=== PATIENT | male | born 2000 ===

== ENCOUNTER 2021-12-18 17:03 | Emergency (ER) | payer SELFPAY ==
[2021-12-18 18:09] LABS: Absolute Lymphocytes (CBC) 1.1 K/uL (0.7-4.9); Hematocrit 42.5 % (39.6-49.0); Lymphocytes % 12.9 % (15.3-44.8); MCV 87.2 fL (80-100); MPV 8.7 fL (7.6-11.3); RBC Red Blood Cell Count 4.87 M/uL (4.33-5.43)
[2021-12-18] MEDS ORDERED: NA CHLORIDE 0.9% 1,000 ML ONE ×2 (18:09→21:08)
[2021-12-18 18:17] LABS: Urine Blood Negative (Negative); Urine Glucose Negative (Negative); Urine Protein Negative (Negative); Urine Specific Gravity 1.025 (1.005-1.030); Urine pH 5.5 (5.0-7.0)
[2021-12-18 18:22] LABS: Protime INR 1.07
[2021-12-18 18:26] LABS: ALT/SGPT 33 U/L (12-78); AST/SGOT 17 U/L (15-37); Albumin 3.8 g/dL (3.4-5.0); Alkaline Phosphatase 115 U/L (45-117); BUN Blood Urea Nitrogen 16 mg/dL (7-18); Bicarbonate 26 mmol/L (21-32); Bilirubin Direct 0.1 mg/dL (0-0.2); Bilirubin Total 0.5 mg/dL (0.2-1.0); Glomerular Filtration Rate 75 ml/min (=/>90); Glucose Level 106 mg/dL (74-106); Magnesium 2.2 mg/dL (1.8-2.4); Potassium 3.8 mmol/L (3.5-5.1); Protein, Total 6.9 g/dL (6.4-8.2); Sodium Level 139 mmol/L (136-145)
[2021-12-18 18:34] LABS: Thyroid Stimulating Hormone 0.686 uIU/mL (0.360-3.740)
[2021-12-18 18:35] LABS: Barbiturates NEGATIVE (NEGATIVE); Benzodiazepines NEGATIVE (NEGATIVE); Cocaine NEGATIVE (NEGATIVE); METHAMPHETAM NEGATIVE (NEGATIVE); Methadone NEGATIVE (NEGATIVE); Opiates NEGATIVE (NEGATIVE); Phencyclidine NEGATIVE (NEGATIVE); THC Cannibis NEGATIVE (NEGATIVE)
[2021-12-18 18:38] LABS: NT PRO-BNP < 5 pg/mL (<125)
--- NOTE | 2021-12-18 19:09 | RAD REPORT ---
EXAM DESCRIPTION: RAD - Chest Single View - 12/18/2021 5:55 pm CLINICAL HISTORY: cptachycardiac TECHNIQUE: AP portable chest image was obtained 12/18/2021 5:55 pm . FINDINGS: Lungs are clear. Heart and vasculature are normal. No measurable pleural effusion and no p neumothorax. No acute bony abnormality seen. No acute aortic findings suspected. IMPRESSION: No acute cardiopulmonary process.
--- NOTE | 2021-12-18 21:47 | ER ---
Nurse's Notes [facility] Name: Srini Palomino Age: 21 yrs Sex: Male : 2000 Arrival Date: 12/18/2021 Time: 17:05 Bed 5 Private MD: Diagnosis: Dehydration Presentation: 12/18 17:12 Chief complaint: EMS states[place] beach , was tachycardic at 180 bpm , iw gave IVF , now down to 125 bpm, pt states he worked all night and went straight to the beach and did not eat much, had two beers at the beach. Coronavirus screen: At this time, the client does not indicate any symptoms associated with coronavirus-19. Ebola Screen: Patient negative for fever greater than or equal to 101.5 degrees Fahrenheit, and additional compatible Ebola Virus Disease symptoms Patient denies exposure to infectious person. Patient denies travel to an Ebola-affected area in the 21 days before illness onset. No symptoms or risks identified at this time. Risk Assessment: Do you want to hurt yourself or someone else? Patient reports no desire to harm self or others. Onset of symptoms was December 18, 2021. 17:12 Method Of Arrival: EMS: [facility] iw 17:12 Acuity: RACHAEL 3 iw 17:15 Care prior to arrival: Medication(s) given: LR 650 mL IV initiated. 18 GA, in the left iw antecubital area, Glucose check: 119. 18:09 Initial Sepsis Screen: Does the patient meet any 2 criteria? HR > 90 bpm. Does the vg1 patient have a suspected source of infection? No. Patient's initial sepsis screen is negative. Historical: - Allergies: 17:15 No Known Allergies; iw - Home Meds: 17:15 None [Active]; iw - PMHx: 17:15 None; iw - PSHx: 18:10 Appendectomy; vg1 - Immunization history:: Client reports receiving the 2nd dose of the Covid vaccine. - Social history:: Smoking status: Patient denies any tobacco usage or history of. Screenin:55 Abuse screen: Denies threats or abuse. Nutritional screening: No deficits noted. vg1 Tuberculosis screening: No symptoms or risk factors identified. Fall Risk No fall in past 12 months (0 pts). No secondary diagnosis (0 pts). IV access (20 points). Ambulatory Aid- None/Bed Rest/Nurse Assist (0 pts). Gait- Normal/Bed Rest/Wheelchair (0 pts) Mental Status- Total Tidwell Fall Scale indicates No Risk (0-24 pts). Assessment: 17:52 General: Appears in no apparent distress. comfortable, Behavior is calm, cooperative. vg1 Pain: Denies pain. Neuro: Level of Consciousness is awake, alert, obeys commands, Oriented to person, place, time, situation. Cardiovascular: Patient's skin is warm and dry. Cardiovascular: Denies chest pain, shortness of breath. Respiratory: Airway is patent Respiratory effort is even, unlabored. GI: No signs and/or symptoms were reported involving the gastrointestinal system. : No signs and/or symptoms were reported regarding the genitourinary system. EENT: No signs and/or symptoms were reported regarding the EENT system. Derm: Skin is intact, is healthy with good turgor. Musculoskeletal: Circulation, motion, and sensation intact. 17:52 Reassessment: Pt girlfriend stated, "he was sitting down and passed out and fell onto vg1 the sand but he did not hit his head" pt stated before falling "I could feel my heart beating fast and I became dizzy and a little nauseous". 20:13 Reassessment: Patient appears in no apparent distress at this time. Patient is alert, as6 oriented x 3, equal unlabored respirations, skin warm/dry/pink. 21:42 Reassessment: Patient appears in no apparent distress at this time. as6 Vital Signs: 17:56 BP 136 / 81; Pulse 115; Resp 16; Pulse Ox 100% on R/A; vg1 18:08 Weight 84.37 kg; Height 5 ft. 11 in. (180.34 cm); Pain 0/10; vg1 20:13 BP 117 / 62; Pulse 100; Resp 18 S; Pulse Ox 100% on R/A; as6 21:42 BP 126 / 70; Pulse 84; Resp 17 S; Pulse Ox 99% on R/A; as6 18:08 Body Mass Index 25.94 (84.37 kg, 180.34 cm) vg1 ED Course: 17:05 Patient arrived in ED. iw 17:14 Diego Giles NP is PHCP. pm1 17:14 London Kaufman MD is Attending Physician. pm1 17:14 Triage completed. iw 17:15 Arm band placed on. iw 17:40 Brenda Lebron, RN is Primary Nurse. vg1 17:55 Patient has correct armband on for positive identification. Placed in gown. Bed in low vg1 position. Call light in reach. Side rails up X2. Adult w/ patient. 17:55 No provider procedures requiring assistance completed. Maintain EMS IV. Dressing vg1 intact. Good blood return noted. Site clean \\T\\ dry. Gauge \\T\\ site: 18 L AC. 17:55 Initial lab(s) drawn, by me, sent to lab. vg1 17:57 Chest Single View In Process Unspecified. EDMS 20:13 PO fluids given. as6 22:03 IV discontinued, intact, bleeding controlled, No redness/swelling at site. Pressure as6 dressing applied. Administered Medications: 18:05 Drug: NS 0.9% 1000 ml Route: IV; Rate: 1000 ml; Site: left antecubital; vg1 22:03 Follow up: Response: No adverse reaction; IV Status: Completed infusion; IV Intake: as6 1000ml 21:09 Drug: NS 0.9% 1000 ml Route: IV; Rate: 1 bolus; Site: left antecubital; as6 22:03 Follow up: Response: No adverse reaction; IV Status: Completed infusion; IV Intake: as6 1000ml Medication: 22:03 VIS not applicable for this client. as6 Intake: 22:03 IV: 1000ml; Total: 1000ml. as6 22:03 IV: 1000ml; Total: 2000ml. as6 Outcome: 21:46 Discharge ordered by . pm1 22:03 Discharged to home ambulatory. as6 22:03 Condition: stable 22:03 Discharge instructions given to patient, Instructed on discharge instructions, follow up and referral plans. Demonstrated understanding of instructions, follow-up care. 22:04 Patient left the ED. as6 Signatures: Dispatcher [employer] Ying Leora, ROMEL URENA iw Diego Giles, DIRECTOR OF FAMILY SERVICE CENTER DIRECTOR OF FAMILY SERVICE CENTER pm1 Brenda Lebron, ROMEL URENA vg1 Babak Evans RN RN as6
--- NOTE | 2021-12-18 21:47 | EDPHYS ---
Physician Documentation [facility] Name: Srini Palomino Age: 21 yrs Sex: Male : 2000 Arrival Date: 12/18/2021 Time: 17:05 Bed 5 Private MD: ED Physician London Kaufman HPI: 12/18 17:26 This 21 yrs old Male presents to ER via EMS with complaints of Near Syncope. pm1 17:26 The patient has experienced syncope, collapsed. Onset: The symptoms/episode pm1 began/occurred just prior to arrival. Duration: This was a single episode. Context: the episode(s) was witnessed, by a significant other, occurred The beach, occurred while the patient was sitting, Just prior to the episode the patient experienced dizziness. Associated injury: The patient did not suffer any apparent associated injury. Associated signs and symptoms: Pertinent positives: Palpitations, negative for chest pain. Current symptoms: Palpitations. The patient has not experienced similar symptoms in the past. The patient has not recently seen a physician. Patient reports that he uses energy drinks every day for work. Today the patient worked and went directly to the beach after work and had 2 beers. Started feeling a little dizzy walked into the tent at the beach sat down and had a syncopal episode. Negative for injury. Presenting here in the ER with reports of palpitations. Historical: - Allergies: 17:15 No Known Allergies; iw - Home Meds: 17:15 None [Active]; iw - PMHx: 17:15 None; iw - PSHx: 18:10 Appendectomy; vg1 - Immunization history:: Client reports receiving the 2nd dose of the Covid vaccine. - Social history:: Smoking status: Patient denies any tobacco usage or history of. ROS: 17:26 Constitutional: Negative for fever, chills, and weight loss. pm1 17:26 Respiratory: Negative for shortness of breath, cough, wheezing, and pleuritic chest pain, Abdomen/GI: Negative for abdominal pain, nausea, vomiting, diarrhea, and constipation, Back: Negative for injury and pain, MS/Extremity: Negative for injury and deformity, Skin: Negative for injury, rash, and discoloration. 17:26 Cardiovascular: Positive for palpitations, Negative for chest pain. 17:26 Neuro: Positive for dizziness, syncope, Negative for headache. 17:26 All other systems are negative. Exam: 17:26 Abdomen/GI: Exam negative for acute changes, Palpation: abdomen is soft and non-tender, pm1 in all quadrants. 17:26 Constitutional: This is a well developed, well nourished patient who is awake, alert, and in no acute distress. Head/Face: Normocephalic, atraumatic. 17:26 Back: No spinal tenderness. No costovertebral tenderness. Full range of motion. Skin: Warm, dry with normal turgor. Normal color with no rashes, no lesions, and no evidence of cellulitis. 17:26 MS/ Extremity: Pulses equal, no cyanosis. Neurovascular intact. Full, normal range of motion. 17:26 Eyes: Exam is negative for acute changes, Periorbital structures: appear normal, Pupils: no acute changes, Extraocular movements: no acute changes. 17:26 ENT: Exam is negative for acute changes, Mouth: no acute changes, Lips: normal, moist, Oral mucosa: normal, pink and intact, moist. 17:26 Cardiovascular: Exam negative for acute changes, Rate: tachycardic, Rhythm: regular, Pulses: no pulse deficits are appreciated, Heart sounds: normal, normal S1and S2, Edema: is not appreciated. 17:26 Respiratory: Exam negative for acute changes, respiratory distress, shortness of breath, Breath sounds: are clear throughout. 17:26 Abdomen/GI: Exam negative for acute changes, Inspection: abdomen appears normal, Palpation: abdomen is soft and non-tender, in all quadrants. 17:26 Neuro: Exam negative for acute changes, Orientation: is normal, Mentation: is normal, Motor: is normal, moves all fours. Vital Signs: 17:56 BP 136 / 81; Pulse 115; Resp 16; Pulse Ox 100% on R/A; vg1 18:08 Weight 84.37 kg; Height 5 ft. 11 in. (180.34 cm); Pain 0/10; vg1 20:13 BP 117 / 62; Pulse 100; Resp 18 S; Pulse Ox 100% on R/A; as6 21:42 BP 126 / 70; Pulse 84; Resp 17 S; Pulse Ox 99% on R/A; as6 18:08 Body Mass Index 25.94 (84.37 kg, 180.34 augustine) vg1 MDM: 17:15 Patient medically screened. pm1 21:45 Data reviewed: vital signs. Data interpreted: Pulse oximetry: on room air is 99 %. pm1 Interpretation: normal. Counseling: I had a detailed discussion with the patient and/or guardian regarding: the historical points, exam findings, and any diagnostic results supporting the discharge/admit diagnosis, lab results, radiology results, the need for outpatient follow up, a family practitioner, to return to the emergency department if symptoms worsen or persist or if there are any questions or concerns that arise at home. 12/18 17:43 Order name: Basic Metabolic Panel; Complete Time: 18:41 EDMS 12/18 17:43 Order name: Liver (Hepatic) Function; Complete Time: 18:41 EDMS 12/18 17:43 Order name: Magnesium; Complete Time: 18:41 EDMS 12/18 17:43 Order name: NT PRO-BNP; Complete Time: 18:41 EDMS 12/18 17:43 Order name: Protime (+INR); Complete Time: 18:41 EDMS 12/18 17:24 Order name: Cardiac monitoring; Complete Time: 18:09 pm1 12/18 17:24 Order name: EKG - Nurse/Tech; Complete Time: 18:09 pm1 12/18 17:24 Order name: IV Saline Lock; Complete Time: 18:09 pm1 12/18 17:24 Order name: Labs collected and sent; Complete Time: 18:09 pm1 12/18 17:24 Order name: O2 Per Protocol; Complete Time: 18:10 pm1 12/18 17:43 Order name: EKG Electrocardiogram EDOR 12/18 17:43 Order name: Thyroid Stimulating Hormone; Complete Time: 18:41 EDMS 12/18 17:43 Order name: Troponin High Sensitivity; Complete Time: 18:41 EDMS 12/18 17:43 Order name: Urine Drug Screen; Complete Time: 18:41 EDMS 12/18 17:43 Order name: Chest Single View; Complete Time: 19:10 EDMS 12/18 17:44 Order name: CBC with Automated Diff; Complete Time: 18:41 EDMS 12/18 18:17 Order name: Urine Dipstick-Ancillary; Complete Time: 18:41 EDMS 12/18 17:24 Order name: O2 Sat Monitoring; Complete Time: 18:10 pm1 12/18 17:24 Order name: Urine Dipstick-Ancillary (obtain specimen); Complete Time: 18:15 pm1 Administered Medications: 18:05 Drug: NS 0.9% 1000 ml Route: IV; Rate: 1000 ml; Site: left antecubital; vg1 22:03 Follow up: Response: No adverse reaction; IV Status: Completed infusion; IV Intake: as6 1000ml 21:09 Drug: NS 0.9% 1000 ml Route: IV; Rate: 1 bolus; Site: left antecubital; as6 22:03 Follow up: Response: No adverse reaction; IV Status: Completed infusion; IV Intake: as6 1000ml Disposition Summary: 12/18/21 21:46 Discharge Ordered Location: Home pm1 Problem: new pm1 Symptoms: have improved pm1 Condition: Stable pm1 Diagnosis - Dehydration pm1 Followup: pm1 - With: Emergency Department - When: As needed - Reason: Worsening of condition Followup: pm1 - With: Private Physician - When: 2 - 3 days - Reason: Recheck today's complaints, Continuance of care, Re-evaluation by your physician Discharge Instructions: - Discharge Summary Sheet pm1 - Dehydration, Adult pm1 - Rehydration, Adult pm1 Forms: - Medication Reconciliation Form pm1 - Thank You Letter pm1 - Antibiotic Education pm1 - Prescription Opioid Use pm1 - Work release form wm Signatures: Dispatcher [employer] EDYing Mascorro, RN ROMEL iw Diego Giles NP AIRWOR[employer]INESS INSPECTOR pm1 Brenda Lebron RN RN vg1 Babak Evans RN RN as6 Corrections: (The following items were deleted from the chart) 18:45 18:34 Chest Single View+RAD.RAD.BRZ ordered. EDMS EDMS 18:54 18:34 CBC+H.LAB.BRZ ordered. EDMS EDMS 18:54 18:34 PROTIME (+INR)+COAG.LAB.BRZ ordered. EDMS EDMS 18:54 18:34 URINE DRUG SCREEN+UC.LAB.BRZ ordered. EDMS EDMS 18:55 18:34 BASIC METABOLIC PANEL+C.LAB.BRZ ordered. EDMS EDMS 18:55 18:34 HEPATIC FUNCTION+C.LAB.BRZ ordered. EDMS EDMS 18:55 18:34 MAGNESIUM+C.LAB.BRZ ordered. EDMS EDMS 18:55 18:34 PROBNP+C.LAB.BRZ ordered. EDMS EDMS 18: 18:34 Troponin High Sensitivity+C.LAB.BRZ ordered. EDMS EDMS : 18:34 THYROID STIMULAT HORMONE+C.LAB.BRZ ordered. EDMS EDMS
[2021-12-18 22:22] VITALS: BP 126/70; O2SAT 99
--- NOTE | 2021-12-19 07:57 | EKG ---
Test Date: 2021-12-18 Test Time: 18:05:47 Drill Operator: QI MEASUREMENT RESULTS: Intervals: Rate: 112 ME: 124 QRSD: 106 QT: 314 QTc: 428 [place]: P: 75 ME: 124 QRS: 58 T: 59 INTERPRETIVE STATEMENTS: Sinus tachycardia Possible Lateral infarct, age undetermined Cannot rule out Inferior infarct, age undetermined Abnormal ECG No previous ECG available for comparison Electronically Signed On 12-19-21 07:55:28 CDT by Ko Orellana
== END 2021-12-18 22:04 | disposition home or self-care (01) ==
LOC: ER 17:03
DX: E86.0 Dehydration (principal); R55 Syncope and collapse; R00.0 Tachycardia, unspecified
CPT/HCPCS: 36415; 71045; 80048; 80076; 80307; 81003; 83735; 83880; 84443; 84484; 85025; 85610; 93005; 96360; 96361; 99284; J7030